=== PATIENT | male | born 1990 | race Caucasian/White ===

== ENCOUNTER 2018-09-23 12:21 | Emergency (ER) | payer OTHER ==
[~2018-09-23] VITALS: Ht 185.4 cm; Wt 72.6 kg
[2018-09-23] MEDS ORDERED: ALBUTEROL2.5 MG/31 INH (12:31)
[2018-09-23] MEDS ORDERED: ACCUNEB SO1.25 MG/1 INH (13:02)
[2018-09-23] MEDS ORDERED: VENTOLIN HFA 1818 GM INH (13:02)
[2018-09-23 13:16] VITALS: BP 114/68
== END 2018-09-23 13:18 | disposition home or self-care (01) ==
LOC: ER 12:21
DX: J45.909 Unspecified asthma, uncomplicated (principal); F17.210 Nicotine dependence, cigarettes, uncomplicated